=== PATIENT | female | born 1975 | race Caucasian/White ===

== ENCOUNTER 2018-02-25 09:08 | Emergency (ER) | payer MEDICAID ==
[~2018-02-25] VITALS: Ht 157.5 cm; Wt 64.5 kg
[2018-02-25 09:09] VITALS: BP 128/92
[2018-02-25] MEDS ORDERED: BUPIVAcaine/PF 2.5 mg/ml (0.25%) 30ml vial IJ ONE (09:55)
[2018-02-25] MEDS ORDERED: BUPIVAcaine/PF 5 MG/ML 10ML VIAL IJ ONE (10:00)
[2018-02-25] MEDS ORDERED: BUPIVAcaine 0.5% inj/PF 30 ml vial IJ ONE (10:10)
== END 2018-02-25 10:32 | disposition home or self-care (01) ==
LOC: ER 09:09
DX: K08.89 Other specified disorders of teeth and supporting structures (principal)
CPT/HCPCS: 64400; 99284; J3490